=== PATIENT | female | born 1965 | race Caucasian/White ===

== ENCOUNTER → 2018-11-06 | Outpatient (CLI) | payer OTHER ==
[~2018-11-06] MED LIST: ALBU90OI INH; ATOR20 PO; AZIT250 PO; Ambien10 MG PO; ENAL10 PO; ESOM20 PO; FLUSAL2505 INH; GABA600 PO; HYDR1TAB94 PO; IBUP600; LEVA.63IS; LEVSOD100; NAPR500 PO; Percocet 5-3251 EACH PO; Prednisone20 MG PO; SUMA25 PO
[2018-11-06 14:25] LABS: Bacteria Mod /hpf; Squamous Epithelial Cells Few /hpf (Few)
== END ==
LOC: LAB SHORT 13:10 → LAB 13:10
PROVIDERS: Family Medicine
DX: R39.15 Urgency of urination (principal); R31.9 Hematuria, unspecified
CPT/HCPCS: 81015

== ENCOUNTER → 2022-09-13 | Outpatient (CLI) | payer OTHER ==
[~2022-09-13] MED LIST changes: +Cyclobenzaprine5 MG PO; +DICLOFENAC SOD100 G1 TP; +ESCI10 PO; +EUTHYROX125 MC1 PO
[2022-09-14 14:11] LABS: HPV 16 Negative (Negative); HPV 18 Negative (Negative); HPV OTHER HR TYPES Negative (Negative)
== END | disposition home or self-care (01) ==
LOC: LAB SHORT 09:21 → LAB 09:21
PROVIDERS: Nurse Practitioner Family
DX: Z12.4 Encounter for screening for malignant neoplasm of cervix (principal); Z11.51 Encounter for screening for human papillomavirus (HPV)
CPT/HCPCS: 87624; G0123

== ENCOUNTER 2025-01-30 10:35 | Inpatient (IN) | payer OTHER ==
[~2025-01-30] VITALS: Ht 167.6 cm; Wt 78.0 kg
[2025-01-30 11:28] LABS: BASOPHILS ABSOLUTE AUTO 0.11 K/mm3 (0.00-0.23); BASOPHILS PERCENT AUTO 1 % (0-2); EOSINOPHILS ABSOLUTE AUTO 0.29 K/mm3 (0.00-0.68); EOSINOPHILS PERCENT AUTO 4 % (0-6); Hematocrit 44.8 % (33.0-51.0); Hemoglobin 14.6 g/dL (11.5-16.0); IMMATURE GRAN ABSOLUTE AUTO 0.05 K/mm3 (0.00-0.10); IMMATURE GRAN PERCENT AUTO 1 % (0-1); LYMPHOCYTES ABSOLUTE AUTO 2.18 K/mm3 (0.84-5.20); LYMPHOCYTES PERCENT AUTO 27 % (21-46); MONOCYTES PERCENT AUTO 5 % (4-13); Mean Corpuscular HGB 30.9 pg (26.0-34.0); Mean Corpuscular HGB Conc 32.6 g/dL (31.5-36.5); Mean Corpuscular Volume 95 fL (80-100); NEUTROPHILS ABSOLUTE AUTO 4.97 K/mm3 (1.96-9.15); NEUTROPHILS PERCENT AUTO 62 % (41-73); RDW Coefficient Variation 14.3 % (11.7-14.2); RDW Standard Deviation 50.2 fL (35.1-46.3); Red Blood Cell Count 4.73 M/mm3 (3.80-5.20)
[2025-01-30] MEDS ORDERED: Aspirin 325 MG Tab PO ONE (11:45)
[2025-01-30 11:46] LABS: Albumin, Blood 4.3 g/dL (3.4-5.0); Albumin/Globulin Ratio 1.2 (0.8-1.8); Bilirubin, Total 0.9 mg/dL (0.1-1.0); Bun/Creatinine Ratio 16.4 (12.0-20.0); Calcium, Blood 8.3 mg/dL (8.5-10.1); Creatinine, Blood 1.22 mg/dL (0.40-1.00); Globulin, Blood 3.5 g/dL (2.2-4.0); Potassium, Blood 4.3 mmol/L (3.5-5.5); Total Protein, Blood 7.8 g/dL (6.4-8.2)
[2025-01-30 11:50] LABS: Platelet Count 151 K/mm3 (150-400)
[2025-01-30 11:56] LABS: Free Thyroxine 0.3 ng/dL (0.70-1.60)
[2025-01-30 12:24] LABS: Source, Urine Clean Catch
[2025-01-30 12:41] LABS: Appearance, Urine Clear (Clear); Bilirubin, Urine Neg (Neg); Blood, Urine Neg (Neg); Color, Urine Yellow (P-Yellow); Glucose Qualitative, Urine Neg (Neg); Ketones, Urine Neg (Neg); Leukocyte Esterase, Urine Neg (Neg); Nitrite, Urine Neg (Neg); Protein, Urine Neg (Neg); Urobilinogen, Urine 1+ (Normal)
[2025-01-30] MEDS ORDERED: NS 1,000 ML IV SCH ×2 (16:05→19:15)
[2025-01-30] MEDS ORDERED: Albuterol 2.5 MG/3 ML VIAL INH PRN (19:15)
[2025-01-30] MEDS ORDERED: Ondansetron HCl 2 MG / ML 2ML Vial IV PRN (19:15)
[2025-01-30] MEDS ORDERED: Levothyroxine Sodium 100 MCG Vial IV ONE (20:00)
[2025-01-30] MEDS ORDERED: Liothyronine Sodium 10 MCG/ML Vial IV ONE (20:00)
[2025-01-30] MEDS ORDERED: Gabapentin 300 MG Cap PO SCH (21:00)
[2025-01-30 22:22] VITALS: BP 158/82
[2025-01-30] MEDS ORDERED: Mometasone/Formoterol MDI 200/5 mcg 13 GM INH SCH (22:30)
[2025-01-30 22:40] LABS: Base Excess Venous -0.7 mmol/L; Bicarbonate Venous 22.5 mmol/L (24.0-30.0); PCO2 Venous 49.6 mmHg (38-42); pH Blood Venous 7.32 (7.34-7.37)
--- NOTE | 2025-01-30 23:02 | NUR ---
ADMIT NOTE 59 YR OLD FEMALE ADMITTED TO FLOOR FROM THE ED WITH DX OF AMS. REPORTED HX OF GARBLED SPEECH FOR WEEKS AND UNDTEADY GAIT FOR MONTHS. SEEN BY MD AND WAS SENT TO [facility] FOR FOLLOW UP. ALERT TO QUESTIONS ASKED, VERBAL RESPONSE ALTERED/GARBLED. UP TO BATHROOM WITH WALKER. VOIDED COTINENT. ORIENTED TO USE OF CALL LIGHT AND BED CONTROL. HOB ELEVATED. CALL LIGH IN REACH. VSS
[2025-01-31] MEDS ORDERED: Liothyronine Sodium 5 MCG Tab PO SCH
--- NOTE | 2025-01-31 03:35 | NUR ---
TICKET TAKER WENDY DIAMOND WAS ADMITTED TO FLOOR FROM THE ED EARLIER IN THE SHIFT WITH DX OF AMS. REPORTED WEEKS OF GARBLED SPEECH AND MONTHS OF UNSTEADY GAIT. SEEN BY HER MD AND WAS TRANSFERRED TO THE HOSPITAL. ALTHOUGH VERBAL GARBLED, ABLE TO MAKE NEEDS KNOWN. UP WITH ASSIST WITH WALKER. CONTINENT. HAS BEEN RESTING QUIETLY WITH FEW INTERRUPTIONS, REFUSED IVF BUT WILL CONTINUE TO ENCOURAGE HER TO COMPLY WITH ORDERS. CALL LIGHT IN REACH, RAILS UP X 2 AND BED IN LOW POSITION FOR SAFETY. WILL CONT TO MONITOR.
[2025-01-31 04:31] VITALS: BP 112/69
[2025-01-31 05:05] LABS: Hematocrit 44.8 % (33.0-51.0); Hemoglobin 14.5 g/dL (11.5-16.0); Mean Corpuscular HGB Conc 32.4 g/dL (31.5-36.5); Mean Corpuscular Volume 96 fL (80-100); Mean Platelet Volume 10.5 fL (9.1-12.4); Platelet Count 155 K/mm3 (150-400); RDW Coefficient Variation 14.3 % (11.7-14.2); Red Blood Cell Count 4.68 M/mm3 (3.80-5.20); White Blood Cell Count 7.77 K/mm3 (4.00-11.30)
[2025-01-31 05:23] LABS: Bun/Creatinine Ratio 15.7 (12.0-20.0); Calcium, Blood 8.3 mg/dL (8.5-10.1); Creatinine, Blood 1.08 mg/dL (0.40-1.00); Potassium, Blood 3.9 mmol/L (3.5-5.5)
[2025-01-31] MEDS ORDERED: Omeprazole 20 MG CapCR PO SCH (06:00)
[2025-01-31 07:30] VITALS: BP 110/66
[2025-01-31] MEDS ORDERED: Enoxaparin 40 MG/0.4 ML SYR SC SCH (09:00)
[2025-01-31] MEDS ORDERED: Atorvastatin 10 MG Tab PO SCH (09:00)
[2025-01-31] MEDS ORDERED: Hydrocortisone Sod Succinate 100 MG Vial IV SCH (09:00)
[2025-01-31] MEDS ORDERED: Aspirin 81 MG Chew PO SCH (09:00)
[2025-01-31] MEDS ORDERED: Levothyroxine Sodium 100 MCG Vial IV SCH (09:00)
[2025-01-31 09:02] LABS: Free Thyroxine 0.5 ng/dL (0.70-1.60); Triiodothyronine, Free 1.44 pg/mL (2.18-3.98)
[2025-01-31 11:08] LABS: U Amphetamine Screen DETECTED; U Barbituate Screen Not Detected; U Benzodiazapine Screen Not Detected; U Buprenorphine Screen Not Detected; U Cannabinoids Screen DETECTED; U Cocaine Screen Not Detected; U Methadone Screen Not Detected; U Methamphetamine Screen DETECTED; U Opiates Screen Not Detected; U Oxycodone Screen Not Detected; U Phencyclidine Screen Not Detected
[2025-01-31 12:14] VITALS: BP 107/63
[2025-01-31 16:11] VITALS: BP 121/72
--- NOTE | 2025-01-31 18:39 | NUR ---
PATIENT A/OX4. UA METH AND CANNIBUS POSITIVE. SPEECH THERAPY. MRI RESULTS NEGATIVE FOR CVA. TELEMTRY IN PLACE NO EVENTS NOTED. PATIENT WAS UP IN CHAIR FOR MEALS. NO IV FLUIDS CONTINUES TO REFUSE IV FLUID, MD AWARE. PATIENT SHOWERED WITH LIMITED ASSIST. NO OTHER CONCERNS.
[2025-01-31 20:32] VITALS: BP 137/85
[2025-02-01 00:53] VITALS: BP 111/62
[2025-02-01 04:30] VITALS: BP 135/75
--- NOTE | 2025-02-01 05:45 | NUR ---
SUMMARY: PT A/OX4, CALLS APPROPRIATELY TO SPECIFY NEEDS AND IS PLEASANT AND COOPERATIVE W/CARE. SHE'S UP W/1PA AND FWW TO TOILET. NO DEFICITS OBSERVED BUT GENERAL WEAKNESS PERSISTS. WAYNE AND PT CONT'S TO HAVE SLIGHT MUMMBLED/GARBLED SPEECH THAT SHE ADMITS HAVING AT BASELINE, THOUGH BECOMES WORSE WHEN STRESSED. PT REPORTS NO TEETH BUT DENIES ANY SWALLOW ISSUES, ST CONSULTED. TELE INTACT IN NSR AT 70'S BPM. VSS/AFEBRILE, NO ACUTE CHANGES. WILL REPORT TO DAY RN.
[2025-02-01 07:44] VITALS: BP 138/75
[2025-02-01 11:57] VITALS: BP 119/52
[2025-02-01 15:31] VITALS: BP 123/63
[2025-02-01] MEDS ORDERED: SUMAtriptan succinate 50 MG Tab PO ONE (15:55)
[2025-02-01] MEDS ORDERED: Acetaminophen 325 MG TABLET PO PRN (15:55)
--- NOTE | 2025-02-01 18:46 | NUR ---
SHIFT SUMMARY PATIENT A/OX4, ABLE TO MAKE NEEDS KNOWN. PLEASANT AND COOPERATIVE WITH CARE. CONTINUES WITH STUTTERED SPEECH INTERMITTENTLY. COMPLAINING OF MIGRAINE THIS AFTERNOON, MD NOTIFIED AND NEW ORDER RECIEVED FOR [place] ONE TIME ADMINISTERED, EFFECTIVE. TELEMETRY IN PLACE, NO EVENTS NOTED. PLAN TO TITRATE STEROIDS DOWN AND DISCHAREG TOMORROW. NO OTHER CONCERNS AT THIS TIME.
[2025-02-01 20:12] VITALS: BP 147/68
[2025-02-01] MEDS ORDERED: Hydrocortisone Sod Succinate 100 MG Vial IV SCH (21:00)
[2025-02-02 00:06] VITALS: BP 152/89
[2025-02-02 03:00] VITALS: BP 138/93
--- NOTE | 2025-02-02 04:42 | NUR ---
SUMMARY: PT A/OX4, IS PLEASANT AND COOPERATIVE W/CARE AND CALLS APPROPRIATELY TO SPECIFY NEEDS. STUTTER AND SLIGHTLY SLURRED SPEECH IS INTERMITTENT BUT PT REPORTS THIS IS BASELINE, NO DEFICITS OBSERVED AND STRENGTH IS EQUAL/INTACT. SHE'S UP W/SBA AND FWW FOR SAFETY. PT DENIES PAIN OTHER THAN NEUROPATHY TO EXT'S AND GABAPENTIN RECEIVED PER EMAR. IV STEROIDS BEING TITRATED DOWN W/PLAN FOR D/C TODAY. NO ACUTE CHANGES, VSS/AFEBRILE AND PT REMAINS NSR AT 70'S BPM ON TELE. WILL REPORT TO DAY RN.
[2025-02-02 05:24] LABS: Hematocrit 41.1 % (33.0-51.0); Hemoglobin 13.6 g/dL (11.5-16.0); Mean Corpuscular HGB 30.9 pg (26.0-34.0); Mean Corpuscular HGB Conc 33.1 g/dL (31.5-36.5); Mean Corpuscular Volume 93 fL (80-100); Mean Platelet Volume 11.4 fL (9.1-12.4); Platelet Count 160 K/mm3 (150-400); RDW Coefficient Variation 14.3 % (11.7-14.2); RDW Standard Deviation 49.1 fL (35.1-46.3); White Blood Cell Count 13.55 K/mm3 (4.00-11.30)
[2025-02-02 05:39] LABS: Bun/Creatinine Ratio 18.6 (12.0-20.0); Calcium, Blood 8.7 mg/dL (8.5-10.1); Creatinine, Blood 1.13 mg/dL (0.40-1.00); Potassium, Blood 4.2 mmol/L (3.5-5.5)
[2025-02-02] MEDS ORDERED: Levothyroxine Sodium 0.125 MG Tab PO SCH (06:00)
[2025-02-02 07:25] VITALS: BP 168/73
[2025-02-02] MEDS ORDERED: AmLODIPine Besylate 5 MG Tab PO SCH (09:00)
--- NOTE | 2025-02-02 09:21 | NUR ---
Pt laying in bed with eyes closed, wakes easily, sits self up in bed, a/ox3-4, forgetful, cooperative with care, follows commands, denies pain, lungs are clear in upper begum, dim in bases, resp even and unlabored, on r/a, no cough noted, hrr, tele in place running sr per monitor, see strip, ppp+1, cap refill <3 sec, vs stable, afebrile, piv to lh, site is clear and patent, btx4, abd flat soft nontender, voids without diff, skin c/w/d, maew, janet, call light in reach.
[2025-02-02 09:31] LABS: Free Thyroxine 0.52 ng/dL (0.70-1.60); Thyroid Stimulating Hormone 36.6 uIU/mL (0.360-4.800); Triiodothyronine, Free 1.69 pg/mL (2.18-3.98)
[2025-02-02] MEDS ORDERED: AMLO5 PO (09:59)
[2025-02-02] MEDS ORDERED: DEXA2 PO (10:00)
[2025-02-02] MEDS ORDERED: GABA300 PO (10:02)
[2025-02-02] MEDS ORDERED: LEVOTHYROXINE150 MC9 PO (10:04)
[2025-02-02 12:09] VITALS: BP 177/82
--- NOTE | 2025-02-02 13:00 | NUR ---
Pt has been discharged to home, went over discharge instructions with her, she verbalized understanding, piv removed intact, left via wheelchair with all her belongings, new medications [facility]ed to [facility] in attendence.
== END 2025-02-02 13:12 | disposition home or self-care (01) | DRG 80 ==
LOC: ER 10:35 → MEDS 10:36 → ERHOLD 10:36 → MEDS 22:09 → ENPENDDIS 02-01 17:43 → MEDS 02-02 13:12
PROVIDERS: Hospitalist; Internal Medicine; Nurse Practitioner Acute Care; Physician Assistant; ADMIT Internal Medicine
DX: E03.5 Myxedema coma (principal); G92.8 Other toxic encephalopathy; I10 Essential (primary) hypertension; K21.9 Gastro-esophageal reflux disease without esophagitis; J44.9 Chronic obstructive pulmonary disease, unspecified; G47.33 Obstructive sleep apnea (adult) (pediatric); I73.9 Peripheral vascular disease, unspecified; R47.1 Dysarthria and anarthria; I65.23 Occlusion and stenosis of bilateral carotid arteries; F15.90 Other stimulant use, unspecified, uncomplicated; F17.210 Nicotine dependence, cigarettes, uncomplicated; Z88.5 Allergy status to narcotic agent; Z91.148 Patient's other noncompliance with medication regimen for other reason; Z88.6 Allergy status to analgesic agent; Z79.890 Hormone replacement therapy; Z79.899 Other long term (current) drug therapy
CPT/HCPCS: 36415; 70450; 70496; 70498; 70551; 71046; 76536; 80048; 80053; 81003; 82533; 82803; 82947; 84439; 84443; 84481; 84484; 85025; 85027; 92523; 93005; 93010; 94640; 94664; 94760; 96374-59; 96375-59; 97161; 97530; 99285-25; A9270; G0378; J1650; J1720; J7030; Q9967

== ENCOUNTER 2025-03-15 16:44 | Inpatient (IN) | payer OTHER ==
[~2025-03-15] VITALS: Ht 160 cm; Wt 69.0 kg
[~2025-03-15 16:44] MED LIST changes: +AMLO5 PO; +DEXA2 PO; -ESOM20 PO; +GABA300 PO; +LEVSOD112 PO
[2025-03-15 17:12] LABS: BASOPHILS ABSOLUTE AUTO 0.08 K/mm3 (0.00-0.23); BASOPHILS PERCENT AUTO 1 % (0-2); EOSINOPHILS ABSOLUTE AUTO 0.11 K/mm3 (0.00-0.68); EOSINOPHILS PERCENT AUTO 1 % (0-6); Hematocrit 45.7 % (33.0-51.0); Hemoglobin 14.7 g/dL (11.5-16.0); IMMATURE GRAN ABSOLUTE AUTO 0.03 K/mm3 (0.00-0.10); IMMATURE GRAN PERCENT AUTO 0 % (0-1); LYMPHOCYTES ABSOLUTE AUTO 2.59 K/mm3 (0.84-5.20); LYMPHOCYTES PERCENT AUTO 28 % (21-46); MONOCYTES ABSOLUTE AUTO 0.55 K/mm3 (0.16-1.47); MONOCYTES PERCENT AUTO 6 % (4-13); Mean Corpuscular HGB 29.9 pg (26.0-34.0); Mean Corpuscular HGB Conc 32.2 g/dL (31.5-36.5); Mean Corpuscular Volume 93 fL (80-100); Mean Platelet Volume 9.8 fL (9.1-12.4); NEUTROPHILS ABSOLUTE AUTO 5.85 K/mm3 (1.96-9.15); NEUTROPHILS PERCENT AUTO 64 % (41-73); Platelet Count 205 K/mm3 (150-400); RDW Coefficient Variation 12.6 % (11.7-14.2); RDW Standard Deviation 43.2 fL (35.1-46.3); Red Blood Cell Count 4.92 M/mm3 (3.80-5.20); White Blood Cell Count 9.21 K/mm3 (4.00-11.30)
[2025-03-15 17:34] LABS: Albumin, Blood 3.5 g/dL (3.4-5.0); Albumin/Globulin Ratio 1.1 (0.8-1.8); Bilirubin, Total 0.3 mg/dL (0.1-1.0); Bun/Creatinine Ratio 13.3 (12.0-20.0); Calcium, Blood 8.7 mg/dL (8.5-10.1); Creatinine, Blood 0.82 mg/dL (0.40-1.00); Globulin, Blood 3.3 g/dL (2.2-4.0); Potassium, Blood 3.8 mmol/L (3.5-5.5); Total Protein, Blood 6.8 g/dL (6.4-8.2)
[2025-03-15 17:45] LABS: Free Thyroxine 1.35 ng/dL (0.70-1.60)
[2025-03-15 17:47] LABS: Thyroid Stimulating Hormone 1.35 uIU/mL (0.360-4.800); Triiodothyronine, Free 2.89 pg/mL (2.18-3.98)
[2025-03-15] MEDS ORDERED: Aspirin 325 MG Tab PO ONE (17:50)
[2025-03-15 18:17] LABS: Source, Urine Clean Catch
[2025-03-15 18:23] LABS: Appearance, Urine Clear (Clear); Bilirubin, Urine Neg (Neg); Blood, Urine 1+ (Neg); Glucose Qualitative, Urine Neg (Neg); Ketones, Urine Neg (Neg); Leukocyte Esterase, Urine Neg (Neg); Nitrite, Urine Neg (Neg); Protein, Urine Neg (Neg); Specific Gravity, Urine 1.005 (1.003-1.022); Urobilinogen, Urine NORM (Normal)
[2025-03-15 18:30] LABS: Amorphous Light (0-Heavy); Bacteria Mod /hpf; Color, Urine Pale Yellow (P-Yellow); Red Blood Cells, Urine 0-2 /hpf (0-2); Squamous Epithelial Cells Rare /hpf (Few); White Blood Cells, Urine 0-2 /hpf (0-5)
[2025-03-15 18:36] LABS: U Amphetamine Screen DETECTED; U Barbituate Screen Not Detected; U Benzodiazapine Screen Not Detected; U Buprenorphine Screen Not Detected; U Cannabinoids Screen DETECTED; U Cocaine Screen Not Detected; U Methadone Screen Not Detected; U Methamphetamine Screen DETECTED; U Opiates Screen Not Detected; U Oxycodone Screen Not Detected; U Phencyclidine Screen Not Detected
[2025-03-15] MEDS ORDERED: Albuterol 2.5 MG/3 ML VIAL INH PRN (21:10)
[2025-03-15] MEDS ORDERED: Magnesium Hydroxide Conc 10 ML UDC PO PRN (21:15)
[2025-03-15] MEDS ORDERED: TraZODone HCl 50 MG Tab PO PRN (21:20)
[2025-03-15] MEDS ORDERED: Gabapentin 300 MG Cap PO SCH (21:51)
[2025-03-15] MEDS ORDERED: Mometasone/Formoterol MDI 100/5 mcg 13 GM INH SCH (21:55)
[2025-03-15] MEDS ORDERED: Nicotine 14 MG PATCH TOP SCH (22:00)
[2025-03-15 23:29] VITALS: BP 148/78
--- NOTE | 2025-03-16 01:00 | NUR ---
PT ADMITTED TO ROOM 328 AT 2325 THIS EVENING. PT ALERT AND ORIENTED. PLEASANT AND COOPERATIVE WITH CARE AND ASSESSMENT. ABLE TO AMBULATE FROM GURNEY TO BED WITH STANDBY ASSIST. NO NOTED DEFICITS FOUND. NIH SCORING DONE. PLEASE SEE NIH SCORING CHART FOR DETAILS. WILL CONTINUE TO MONITOR PT, AND WILL REPORT OFF TO ONCOMING RN. WILL REVIEW CHART AND PLAN OF CARE FOR THIS PT.
[2025-03-16 04:02] VITALS: BP 136/61
[2025-03-16] MEDS ORDERED: Omeprazole 20 MG CapCR PO SCH (06:00)
[2025-03-16] MEDS ORDERED: Levothyroxine Sodium 0.15 MG Tab PO SCH (06:00)
[2025-03-16 07:09] VITALS: BP 141/75
--- NOTE | 2025-03-16 07:26 | NUR ---
PT CONTINUES WITH ONLY EXPRESSIVE APHASIA TO NOTE.
[2025-03-16 08:58] LABS: CHOL/HDL RATIO 4.1; Cholesterol 181 mg/dL (50-200); HDL Cholesterol 44 mg/dL (>39); LDL/HDL RATIO 2.1; Low Density Lipoprotein Chol 90 mg/dL (0-110); Triglycerides 234 mg/dL (30-160); Very Low Density Lipoprot Chol 46 mg/dL (6-32)
[2025-03-16] MEDS ORDERED: Atorvastatin 10 MG Tab PO SCH (09:00)
[2025-03-16] MEDS ORDERED: Aspirin 325 MG Tab PO SCH (09:00)
[2025-03-16] MEDS ORDERED: Enoxaparin 40 MG/0.4 ML SYR SC SCH (09:00)
[2025-03-16] MEDS ORDERED: AmLODIPine Besylate 5 MG Tab PO SCH (09:00)
[2025-03-16] MEDS ORDERED: Citalopram Hydrobromide 20 MG Tab PO SCH (09:00)
--- NOTE | 2025-03-16 09:05 | NUR ---
ASSUMPTION OF CARE: ASSUMED CARE OF PATIENT. AWAKE DURING SHIFT CHANGE REPORT. LYING IN BED c HOB ELEVATED. REATHING EVEN AND UNLABORED ON ROOM AIR. RHYTHM STRIP SINUS @ 78. BED IN LOWEST POSITION. CALL LIGHT WITHIN REACH. NO ACUTE NEEDS.
[2025-03-16] MEDS ORDERED: Clopidogrel Bisulfate 75 MG Tab PO SCH (11:00)
[2025-03-16 11:47] VITALS: BP 142/73
[2025-03-16 15:17] VITALS: BP 130/63
[2025-03-16] MEDS ORDERED: Enalapril Malea20 MG PO (17:33)
[2025-03-16] MEDS ORDERED: LIDOCAINE1 EACH TD (17:35)
[2025-03-16] MEDS ORDERED: KLOR-CON 1010 ME1 PO (17:37)
[2025-03-16] MEDS ORDERED: IMITREX100 MG PO (17:38)
[2025-03-16] MEDS ORDERED: TOPI100 PO (17:38)
[2025-03-16] MEDS ORDERED: ESOM20 PO (17:41)
[2025-03-16] MEDS ORDERED: Potassium Chloride 10 Meq Tablet SA PO PRN (17:50)
[2025-03-16] MEDS ORDERED: Enalapril Maleate 5 MG Tab PO SCH (18:00)
[2025-03-16] MEDS ORDERED: Cyclobenzaprine HCl 10 MG Tab PO SCH (18:00)
--- NOTE | 2025-03-16 19:14 | NUR ---
END OF SHIFT SUMMARY: A&Ox4. PLEASANT AND COOPERATIVE WITH CARE. CALLS APPROPRIATELY AND IS ABLE TO ADVOCATE NEEDS EFFECTIVELY. CONTINENT OF BOWEL AND BLADDER; LBM TODAY. AMBULATES SBA c FWW. MEDS WHOLE c FLUIDS. NO C/O PAIN OR DISCOMFORT. TELE SINUS @ 78. CONTINUES TO STRUGGLE WITH VERBAL APHASIA. ECHO DONE TODAY. RESULTS STILL PENDING. BED IN LOWEST POSITION, CALL LIGHT WITHIN REACH, ALL NEEDS MET. REPORT TO ONCOMING NURSE.
[2025-03-16 20:01] VITALS: BP 104/45
[2025-03-17 00:08] VITALS: BP 99/47
[2025-03-17 04:56] VITALS: BP 107/50
--- NOTE | 2025-03-17 05:51 | NUR ---
SHIFT SUMMARY: Pt is admitted for stroke and is a DNR. is alert and able to make needs known. ADLs have been SBA. denies pain or discomfort when asked. Telly noted sinus in the 70s
[2025-03-17] MEDS ORDERED: Pantoprazole Sodium 20 MG Tab PO SCH (06:00)
[2025-03-17 06:04] LABS: Hematocrit 40.3 % (33.0-51.0); Hemoglobin 13.2 g/dL (11.5-16.0); Mean Corpuscular HGB 30.3 pg (26.0-34.0); Mean Corpuscular HGB Conc 32.8 g/dL (31.5-36.5); Mean Corpuscular Volume 92 fL (80-100); Mean Platelet Volume 10.2 fL (9.1-12.4); Platelet Count 186 K/mm3 (150-400); RDW Coefficient Variation 12.6 % (11.7-14.2); RDW Standard Deviation 43.1 fL (35.1-46.3); Red Blood Cell Count 4.36 M/mm3 (3.80-5.20); White Blood Cell Count 8.02 K/mm3 (4.00-11.30)
[2025-03-17 06:22] LABS: Bun/Creatinine Ratio 22.5 (12.0-20.0); Calcium, Blood 8.6 mg/dL (8.5-10.1); Creatinine, Blood 0.85 mg/dL (0.40-1.00); Potassium, Blood 4.3 mmol/L (3.5-5.5)
[2025-03-17 07:20] VITALS: BP 109/48
[2025-03-17] MEDS ORDERED: Lidocaine 4% 1 Patch TOP SCH (09:00)
[2025-03-17] MEDS ORDERED: Topiramate 100 MG Tab PO SCH (09:00)
[2025-03-17] MEDS ORDERED: ASPI81CH PO (13:16)
[2025-03-17] MEDS ORDERED: CLOP75 PO (13:16)
[2025-03-17] MEDS ORDERED: PANT20 PO (13:17)
--- NOTE | 2025-03-17 13:38 | NUR ---
DISCHARGE SUMMARY PATIENT DISCHARGED HOME WITH REFERRAL TO OUTPATIENT SPEECH THERAPY. HARD SCRIPT PROVIDED. IV REMOVED AND SITE APPEARS WNL. NEW RX FAXED TO [facility] PER PATIENT PREFERENCE. DISCHARGE PACKET REVIEWED WITH PATIENT AND BROTHER AT BEDSIDE. TELE REMOVED/CLEANED/SENT BACK TO PCU. PATIENT WHEEELED DOWN TO PRIVATE VEHICLE BY [employer] TEAM LEADER.
== END 2025-03-17 13:36 | disposition home or self-care (01) | DRG 65 ==
LOC: ER 16:44 → MEDS 21:11 → ERHOLD 21:11 → MEDS 23:22
PROVIDERS: Emergency Medicine; Internal Medicine; Student in an Organized Health Care Education/Training Program; ADMIT Internal Medicine
DX: I63.512 Cerebral infarction due to unspecified occlusion or stenosis of left middle cerebral artery (principal); G81.91 Hemiplegia, unspecified affecting right dominant side; I10 Essential (primary) hypertension; E78.5 Hyperlipidemia, unspecified; J44.9 Chronic obstructive pulmonary disease, unspecified; G47.33 Obstructive sleep apnea (adult) (pediatric); Z66 Do not resuscitate; E03.9 Hypothyroidism, unspecified; G62.9 Polyneuropathy, unspecified; G89.29 Other chronic pain; F32.A Depression, unspecified; K21.9 Gastro-esophageal reflux disease without esophagitis; I65.22 Occlusion and stenosis of left carotid artery; I73.9 Peripheral vascular disease, unspecified; R47.01 Aphasia; F15.90 Other stimulant use, unspecified, uncomplicated; F12.90 Cannabis use, unspecified, uncomplicated; F17.200 Nicotine dependence, unspecified, uncomplicated; Z88.5 Allergy status to narcotic agent; Z79.890 Hormone replacement therapy; Z79.51 Long term (current) use of inhaled steroids; Z79.52 Long term (current) use of systemic steroids
CPT/HCPCS: 36415; 70450; 70496; 70498; 80048; 80053; 80061; 81001; 82533; 82947; 83036; 84439; 84443; 84481; 85025; 85027; 87086; 92523; 93005; 93010; 93306; 94640; 94664; 94760; 97110; 97116; 97161; 97165; 97530; 97535; 99285-25; A9270; J1650; J2470; Q9967